=== PATIENT | male | born 1985 | race Caucasian/White ===

== ENCOUNTER 2019-05-19 22:05 | Emergency (ER) | payer BC ==
[~2019-05-19] VITALS: Ht 177.8 cm; Wt 96.2 kg
== END 2019-05-19 23:01 | disposition home or self-care (01) ==
LOC: ER 22:05
DX: R06.02 Shortness of breath (principal); F41.0 Panic disorder [episodic paroxysmal anxiety]

== ENCOUNTER 2019-08-15 13:25 | Emergency (ER) | payer BC ==
[~2019-08-15] VITALS: Ht 177.8 cm; Wt 95.7 kg
[2019-08-15] MEDS ORDERED: XANAX0.25 MG PO (13:36)
== END 2019-08-15 17:24 | disposition home or self-care (01) ==
LOC: ER 13:25
DX: I16.1 Hypertensive emergency (principal); I10 Essential (primary) hypertension; F41.8 Other specified anxiety disorders; T43.225A Adverse effect of selective serotonin reuptake inhibitors, initial encounter; Y92.89 Other specified places as the place of occurrence of the external cause

== ENCOUNTER 2024-04-21 13:25 | Emergency (ER) | payer BC ==
[~2024-04-21] VITALS: Ht 180.3 cm; Wt 95.3 kg
[~2024-04-21 13:25] MED LIST: XANAX0.25 MG PO
[2024-04-21] MEDS ORDERED: AMLODIPINE BESY10 MG PO (13:55)
[2024-04-21 15:19] LABS: HEMATOCRIT 47.5 % (39.0-48.0); HEMOGLOBIN 16.5 g/dL (13-16.00); MEAN CELL VOLUME 101.2 fL (80.0-100.00); MEAN CORPUSCULAR HEMOGLOBIN 35.2 pg (27.00-32.0); MEAN CORPUSCULAR HGB CONC 34.7 g/dl (32.0-36.0); PLATELET COUNT 207 K/uL (150-450); RED BLOOD COUNT 4.69 M/uL (4.00-6.00); RED CELL DISTRIBUTION WIDTH 13.3 % (11.5-14.5)
[2024-04-21 15:39] LABS: CREATININE SERUM 1.09 mg/dL (0.70-1.30); GFR 75.31
== END 2024-04-21 20:01 | disposition home or self-care (01) ==
LOC: ER 13:27
PROVIDERS: General Practice
DX: R10.9 Unspecified abdominal pain (principal); K43.9 Ventral hernia without obstruction or gangrene